=== PATIENT | female | born 1970 | race Caucasian/White ===

== ENCOUNTER → 2016-10-16 | Outpatient (CLI) | payer OTHER ==
[~2016-10-16] MED LIST: ALAVERT10 M1 PO; ALLEGRA-D1 TAB.SR1; ASPIRIN EC81 M1 PO; BUPROPION HCL150 M1 PO; COREG3.125 MG PO; CRESTOR40 MG PO; EFFIENT10 MG PO; ZESTRIL2.5 M1 PO
--- NOTE | ~2016-10-16 | ST ---
Unit #: [id number] #: [id number] Patient: CRISTINO GEIGER [id number] [address] [address] [id number] O MR#: [id number] NAME: CRISTINO GEIGER : 1970 SEX: F STUDY DATE/TIME: 10/16/2016 UNIT: [facility] ROOM: STUDY DESCRIPTION: Stress test Attending Physician: Kisha Duong M.D. Referring Physician: Kisha Duong M.D. Primary Care Physician: Malena Christianson Aprn CARDIOLOGY REPORT REASON FOR TEST DOT recertification. PROCEDURE Baseline EKG shows normal sinus rhythm, rate of 68 beats per minute. The patient exercised on the treadmill according to the Tee protocol for a total of 11 minutes, 30 seconds achieving 11.5 METS with a resting heart rate of 68 beats per minute and a peak heart rate of 173 beats per minute representing 98% of the age-predicted maximum heart rate. The patient denied any complaints of chest pain during the exercise stress test. She did have some mild shortness of breath and increasing leg fatigue, which occurred at peak exercise. The speed had to be slowed down secondary to leg fatigue. There were no ST or T wave changes suggestive of ischemia. There was no ectopy. CONCLUSIONS 1. Negative EKG portion of the exercise Cardiolite. 2. No ST-T wave changes suggestive of ischemia. 3. The patient developed some mild shortness of breath but denied any chest pain throughout the testing period. At peak exercise, the speed of the treadmill needed to be slowed down secondary to increasing leg fatigue. 4. There were no arrhythmias. 5. Please correlate with nuclear imaging. Dictated by... Lauren Morgan A.P.R.N. for Kisha Duong M.D. LMW/db TD: 10/16/2016 11:04 JOB #: [id number] Unit #: [id number] #: [id number] Patient: CRISTINO GEIGER CARDIOLOGY REPORT Page 1 of 1 X Lauren Morgan APRN CARDIOLOGY REPORT
--- NOTE | ~2016-10-16 | TH ---
Unit #: [id number] #: [id number] Patient: CRISTINO GEIGER [id number] [address] [address] [id number] O MR#: [id number] NAME: CRISTINO GEIGER : 1970 SEX: F STUDY DATE/TIME: 10/16/2016 UNIT: [facility] ROOM: STUDY DESCRIPTION: Cardiolite imaging. Attending Physician: Kisha Duong M.D. Referring Physician: Kisha Duong M.D. Primary Care Physician: Malena Christianson Aprn CARDIOLOGY REPORT EXAM Stress nuclear and ECG combined. SUMMARY The patient exercised on a Tee protocol to maximal effort. Technetium 99m Cardiolite 9.97 and 35.1 mCi was injected at rest and stress respectively. Appropriate views were obtained. FINDINGS Full stress ECG studies are reported separately. Briefly, the patient completed 9 minutes 55 seconds of exercise. There were no ECG changes, but there was considerable baseline artifact present. The patient stopped due to leg fatigue. Heart rate increased from 93 to 173 (98%), and blood pressure increased from 99/70 to 144/88. Perfusion images demonstrate diaphragmatic artifact, intestinal artifact at rest, apical thinning at rest, with less of all of the artifacts with stress. Left ventricular size appears slightly larger with stress. Otherwise perfusion is normal and equivalent between rest and stress. Planar images demonstrate no significant patient motion at rest or stress. Chest wall attenuation artifact. No increased left ventricular size. Summed stress scores is 1. End-diastolic volume is 60 ml, ejection fraction 61%. IMPRESSION 1. Uptake is suboptimal, but no evidence of ischemia or infarction. Normal study. 2. Normal ejection fraction and left ventricular size. Dictated by... Shane Rodgers/massimo TD: 10/17/2016 10:21 JOB #: [id number] Unit #: [id number] #: [id number] Patient: CRISTINO GEIGER CARDIOLOGY REPORT Page 1 of 1 X Deng Vance MD CARDIOLOGY REPORT
== END | disposition home or self-care (01) ==
LOC: CNUC 07:40
DX: Z02.1 Encounter for pre-employment examination (principal); I25.10 Atherosclerotic heart disease of native coronary artery without angina pectoris; Z98.61 Coronary angioplasty status
CPT/HCPCS: 78452; 93017; A9500